=== PATIENT | male | born 1980 | race Caucasian/White ===

== ENCOUNTER 2016-06-14 20:12 | Emergency (ER) | payer SELFPAY ==
[2016-06-14] MEDS ORDERED: IBUPROFEN 800 MG TABLET PO ONE (20:37)
--- NOTE | 2016-06-14 20:38 | ER Document Report ---
ED Medical Screen (RME) - General Stated Complaint: LEFT KNEE INJURY Notes: Patient complains of left knee swelling that has been progressing throughout the day. No new injury, states he has had previous injuries to the knee. Complains of pain with walking. I have greeted and performed a rapid initial assessment of this patient. A comprehensive ED assessment and evaluation of the patient, analysis of test results and completion of the medical decision making process will be conducted by additional ED providers. TRAVEL OUTSIDE OF THE [place] IN LAST 30 DAYS: No - Related Data Allergies/Adverse Reactions: No Known Allergies Allergy (Verified 06/14/16 20:35) Past Medical History - Past Medical History Cardiac Medical History: Reports: Hx Heart Attack - patient states he had a mild mi in [place] several years ago Musculoskeltal Medical History: Reports Hx Musculoskeletal Trauma - shoulder injury 2001 Past Surgical History: Reports: Hx Orthopedic Surgery - left knee orthoscopy, Hx Tonsillectomy - Immunizations Immunizations up to date: Yes Hx Diphtheria, Pertussis, Tetanus Vaccination: Yes Physical Exam - Vital signs Vitals: Temp Pulse Resp BP Pulse Ox 98.7 F 84 16 125/80 100 06/14/16 20:20 06/14/16 20:20 06/14/16 20:20 06/14/16 20:20 06/14/16 20:20 - Extremities Notes: Mild edema anterior left knee, no warmth or redness noted. Course - Vital Signs Vital signs: Temp Pulse Resp BP Pulse Ox 98.7 F 84 16 125/80 100 06/14/16 20:20 06/14/16 20:20 06/14/16 20:20 06/14/16 20:20 06/14/16 20:20
[2016-06-14] MEDS ORDERED: HYDROCODONE/ACETAMINOPHEN 5-325 MG 6 TAB/DSPK PO PRN (22:20)
--- NOTE | 2016-06-14 22:24 | ER Document Report ---
HPI - HPI Patient complains to provider of: knee pain Onset: This afternoon Onset/Duration: Gradual Quality of pain: Achy Pain Level: 5 Context: Patient complains of left knee pain that started today. Patient states that his left knee has had a previous orthoscopic procedure on the past and occasionally will give out on him. Patient denies any new injury. Patient states that he has pain with weightbearing. Associated Symptoms: Other. denies: Fever - Left knee joint pain Exacerbated by: Standing, Movement, Walking Relieved by: Remaining still Similar symptoms previously: Yes Recently seen / treated by doctor: No - ROS ROS below otherwise negative: Yes Systems Reviewed and Negative: Yes All other systems reviewed and negative - CONSTITUTIONAL Constitutional: DENIES: Fever - NEURO Neurology: DENIES: Weakness - CARDIOVASCULAR Cardiovascular: DENIES: Chest pain - GASTROINTESTINAL Gastrointestinal: DENIES: Nausea, Patient vomiting - MUSCULOSKELETAL Musculoskeletal: REPORTS: Extremity pain, Swelling - DERM Skin Color: Normal, [place] Skin Problems: None Past Medical History - General Information source: Patient - Social History Smoking Status: Current Every Day Smoker Chew tobacco use (# tins/day): No Frequency of alcohol use: Rare Drug Abuse: None Occupation: moving and storage Family History: DM, Malignancy - Past Medical History Cardiac Medical History: Reports: Hx Heart Attack - patient states he had a mild mi in [place] several years ago Renal/ Medical History: Denies: Hx Peritoneal Dialysis Musculoskeltal Medical History: Reports Hx Musculoskeletal Trauma - shoulder injury 2002 Past Surgical History: Reports: Hx Orthopedic Surgery - left knee orthoscopy, Hx Tonsillectomy - Immunizations Immunizations up to date: Yes Hx Diphtheria, Pertussis, Tetanus Vaccination: Yes Vertical Provider Document - CONSTITUTIONAL Agree With Documented VS: Yes Exam Limitations: No Limitations General Appearance: WD/WN, No Apparent Distress - INFECTION CONTROL TRAVEL OUTSIDE OF THE [place] IN LAST 30 DAYS: No - HEENT HEENT: Atraumatic, Normocephalic - NECK Neck: Normal Inspection, Supple - RESPIRATORY Respiratory: Breath Sounds Normal, No Respiratory Distress O2 Sat by Pulse Oximetry: 100 - CARDIOVASCULAR Cardiovascular: Regular Rate, Regular Rhythm, No Murmur Pulses: Normal: Posterior tibial - MUSCULOSKELETAL/EXTREMETIES Musculoskeletal/Extremeties: MAEW, FROM, Tender - Patient with left knee tenderness over tibial tuberosity, area mildly swollen Notes: Normal skin temperature overlying both knee joints bilaterally - NEURO Level of Consciousness: Awake, Alert, Appropriate Motor/Sensory: No Motor Deficit - DERM Integumentary: Warm, Dry, No Rash Course - Vital Signs Vital signs: Temp Pulse Resp BP Pulse Ox 98.7 F 84 16 125/80 100 06/14/16 20:20 06/14/16 20:20 06/14/16 20:20 06/14/16 20:20 06/14/16 20:20 - Diagnostic Test Radiology reviewed: Reports reviewed Discharge - Discharge Clinical Impression: Left knee pain Qualifiers: Chronicity: acute Qualified Code(s): M25.562 - Pain in left knee Bursitis Qualifiers: Bursitis location: knee Knee bursitis location: infrapatellar bursitis Laterality: left Qualified Code(s): M70.52 - Other bursitis of knee, left knee Condition: Stable Disposition: HOME, SELF-CARE Instructions: Use of Crutches ([facility]), Oral Narcotic Medication ([facility]), Anti- Inflammatory Medication ([facility]), Bursitis ([facility]) Additional Instructions: Return immediately for any new or worsening symptoms Followup with your primary care provider, call tomorrow to make a followup appointment Weightbearing as tolerated Follow up with orthopedic Dr. for any continued pain or problems Prescriptions: Hydrocodone/Acetaminophen [[place] 5-325 Tablet] 1 each PO Q4 PRN #10 tablet PRN Reason: Naproxen [Naprosyn 250 Nmg Tablet] 1 tab PO BID #14 tablet Forms: Return to Work Referrals: [facility] ([facility] [Provider Group] - 06/17/16
[2016-06-14 22:47] VITALS: BP 119/63
== END 2016-06-14 22:47 | disposition home or self-care (01) ==
LOC: ER 20:12
DX: M25.562 Pain in left knee (principal); M70.52 Other bursitis of knee, left knee; F17.200 Nicotine dependence, unspecified, uncomplicated
CPT/HCPCS: 99283

== ENCOUNTER 2018-02-01 17:14 | Emergency (ER) | payer MEDICAID ==
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
[2018-02-01] MEDS ORDERED: IBUPROFEN 800 MG TABLET PO ONE (18:37)
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
[2018-02-01 18:48] VITALS: BP 125/80
== END 2018-02-01 18:49 | disposition home or self-care (01) ==
LOC: ER 17:14
DX: S60.221A Contusion of right hand, initial encounter (principal); S60.021A Contusion of right index finger without damage to nail, initial encounter; S60.041A Contusion of right ring finger without damage to nail, initial encounter; M79.641 Pain in right hand; W54.8XXA Other contact with dog, initial encounter; Y93.K9 Activity, other involving animal care; F17.200 Nicotine dependence, unspecified, uncomplicated
CPT/HCPCS: 99283; 73130; J3490

== ENCOUNTER 2018-04-06 12:57 | Emergency (ER) | payer MEDICAID ==
[2018-04-06 13:07] VITALS: BP 130/91
[2018-04-06 14:27] LABS: A TYPE INFLUENZA AG NEGATIVE (NEGATIVE); B INFLUENZA AG NEGATIVE (NEGATIVE)
--- NOTE | 2018-04-06 15:04 | ER Document Report ---
HPI - HPI Time Seen by Provider: 04/06/18 13:18 Pain Level: 3 Notes: Patient is an otherwise healthy 37-year-old male presenting with chief complaint of cough, sore throat and congestion ongoing for approximately 2 weeks. Patient reports fever started 2 days ago and is low-grade. Patient reports his cough is productive with yellow sputum. Denies any nausea, vomiting or diarrhea. - CONSTITUTIONAL Constitutional: REPORTS: Fever - EENT EENT: REPORTS: Sore Throat - RESPIRATORY Respiratory: REPORTS: Coughing Past Medical History - General Information source: Patient - Social History Smoking Status: Never Smoker Frequency of alcohol use: None Drug Abuse: None Family History: Reviewed & Not Pertinent, DM, Malignancy Patient has suicidal ideation: No Patient has homicidal ideation: No - Past Medical History Cardiac Medical History: Reports: Hx Heart Attack - patient states he had a mild mi in [place] several years ago Renal/ Medical History: Denies: Hx Peritoneal Dialysis Musculoskeletal Medical History: Reports Hx Musculoskeletal Trauma - shoulder injury 2001 Psychiatric Medical History: Reports: Hx Bipolar Disorder, Hx Depression Past Surgical History: Reports: Hx Orthopedic Surgery - left knee orthoscopy, Hx Tonsillectomy - Immunizations Immunizations up to date: Yes Hx Diphtheria, Pertussis, Tetanus Vaccination: Yes Vertical Provider Document - CONSTITUTIONAL Notes: PHYSICAL EXAMINATION: GENERAL: Well-appearing, well-nourished and in no acute distress. HEAD: Atraumatic, normocephalic. EYES: Pupils equal round extraocular movements intact, conjunctiva are normal. ENT: Nares patent, no tonsillar swelling, erythema or exudates, uvula midline. NECK: Normal range of motion, no cervical lymphadenopathy. LUNGS: No respiratory distress, lung sounds clear to auscultation bilaterally Musculoskeletal: Normal range of motion NEUROLOGICAL: Normal speech, normal gait. PSYCH: Normal mood, normal affect. SKIN: Warm, Dry, normal turgor, no rashes or lesions noted. - INFECTION CONTROL TRAVEL OUTSIDE OF THE [place] IN LAST 30 DAYS: No Course - Re-evaluation Re-evalutation: Patient's physical examination is unremarkable. Patient diagnosed with viral upper respiratory illness after influenza testing was negative. - Vital Signs Vital signs: Temp Pulse Resp BP Pulse Ox 98.2 F 91 16 130/91 H 96 04/06/18 13:06 04/06/18 13:06 04/06/18 13:06 04/06/18 13:06 04/06/18 13:06 Discharge - Discharge Clinical Impression: Viral upper respiratory illness Condition: Stable Disposition: HOME, SELF-CARE Additional Instructions: Your symptoms are most likely due to a viral infection it should resolve over the next 7-14 days. You should take [id number] guanfacine per bottle instructions to help thin the mucus. For nasal congestion: I would recommend that you get [id number] oxymetazoline also known is afrin. Use only per bottle instructions and be sure to never use this for more than 3 days if you can develop severe rebound congestion. You may also use tylenol or ibuprofen as needed for aches and thorat discomfort. Please be sure to drink plenty of fluids and get rest. Return to the emergency department he began having difficulty breathing, chest pain, persistent vomiting, or any other symptoms that are concerning to you. Prescriptions: Benzonatate [Tessalon Perles 100 mg Capsule] 100 mg PO Q8HP PRN #40 capsule PRN Reason: Fluticasone Propionate [Flonase Nasal [place] 50 Mcg/[place] 16 gm] 2 sprays NASL Q12 #1 inhaler
== END 2018-04-06 15:11 | disposition home or self-care (01) ==
LOC: ER 12:57
DX: J06.9 Acute upper respiratory infection, unspecified (principal); J02.9 Acute pharyngitis, unspecified; R68.89 Other general symptoms and signs; I25.2 Old myocardial infarction
CPT/HCPCS: 87804; 99283